=== PATIENT | male | born 1975 ===

== ENCOUNTER 2019-11-17 22:24 | Emergency (ER) | payer SELFPAY ==
[~2019-11-17] VITALS: Ht 185.4 cm; Wt 66.7 kg
== END 2019-11-17 23:55 | disposition home or self-care (01) ==
LOC: ER 22:24
DX: F43.10 Post-traumatic stress disorder, unspecified (principal); F41.9 Anxiety disorder, unspecified; F32.9 Major depressive disorder, single episode, unspecified; Z59.0 Homelessness; Z88.8 Allergy status to other drugs, medicaments and biological substances; F17.210 Nicotine dependence, cigarettes, uncomplicated
CPT/HCPCS: 99283